=== PATIENT | female | born 1995 | race Asian ===

== ENCOUNTER 2018-05-12 03:33 | Emergency (ER) | payer OTHER ==
[~2018-05-12] VITALS: Ht 160 cm; Wt 123.4 kg
[2018-05-12 05:09] VITALS: BP 162/90; TEMP 98.4
== END 2018-05-12 05:14 | disposition home or self-care (01) ==
LOC: ED 03:33
PROC: 09C37ZZ Extirpation of Matter from Right External Auditory Canal, Via Natural or Artificial Opening (ICD-10-PCS; principal; 2018-05-12)
DX: T16.1XXA Foreign body in right ear, initial encounter (principal)
CPT/HCPCS: 99283; J7040

== ENCOUNTER 2018-05-19 22:13 | Emergency (ER) | payer OTHER ==
[~2018-05-19] VITALS: Ht 160 cm; Wt 122.5 kg
[2018-05-19 22:30] VITALS: BP 177/93; TEMP 98
== END 2018-05-20 01:07 | disposition home or self-care (01) ==
LOC: ED 22:13
PROC: 09C37ZZ Extirpation of Matter from Right External Auditory Canal, Via Natural or Artificial Opening (ICD-10-PCS; principal; 2018-05-19)
DX: T16.1XXA Foreign body in right ear, initial encounter (principal)
CPT/HCPCS: 99282

== ENCOUNTER 2018-09-19 22:01 | Emergency (ER) | payer OTHER ==
[~2018-09-19] VITALS: Ht 160 cm; Wt 121.6 kg
[2018-09-19 23:02] VITALS: BP 149/89; TEMP 98.2
== END 2018-09-19 23:02 | disposition home or self-care (01) ==
LOC: ED 22:01
DX: M79.661 Pain in right lower leg (principal)
CPT/HCPCS: 99282

== ENCOUNTER 2019-02-22 20:45 | Emergency (ER) | payer OTHER ==
[~2019-02-22] VITALS: Ht 160 cm; Wt 120.7 kg
[2019-02-22 22:10] VITALS: BP 163/91; TEMP 98.9
== END 2019-02-22 22:10 | disposition home or self-care (01) ==
LOC: ED 20:45
DX: L02.811 Cutaneous abscess of head [any part, except face] (principal)
CPT/HCPCS: 99282

== ENCOUNTER 2020-06-04 10:02 | Outpatient (CLI) | payer OTHER | END 2020-06-04 21:07 | disposition home or self-care (01) | LOC: INF 10:02 | PROVIDERS: ATTEND Internal Medicine | DX: Z23 Encounter for immunization (principal) | CPT/HCPCS: 96372 ==

== ENCOUNTER 2020-07-01 09:41 | Outpatient (CLI) | payer OTHER | END 2020-07-01 20:14 | disposition home or self-care (01) | LOC: INF 09:41 | PROVIDERS: ATTEND Internal Medicine | DX: Z23 Encounter for immunization (principal) | CPT/HCPCS: 96372 ==

== ENCOUNTER 2021-12-22 20:50 | Emergency (ER) | payer OTHER ==
[~2021-12-22] VITALS: Ht 160 cm; Wt 120.7 kg
[2021-12-22 21:58] LABS: PLATELET COUNT 227 K/uL (152-353)
[2021-12-22] MEDS ORDERED: METF500T PO (22:10)
[2021-12-22] MEDS ORDERED: LISI10TA11 PO (22:10)
[2021-12-22 22:15] LABS: POTASSIUM 3.6 mmol/L (3.6-5.2)
[2021-12-22 23:45] VITALS: BP 154/84; TEMP 99.5
== END 2021-12-22 23:50 | disposition home or self-care (01) ==
LOC: ED 20:50
PROVIDERS: Emergency Medicine
DX: B34.9 Viral infection, unspecified (principal); Z20.822 Contact with and (suspected) exposure to COVID-19; I10 Essential (primary) hypertension; E11.65 Type 2 diabetes mellitus with hyperglycemia; Z79.84 Long term (current) use of oral hypoglycemic drugs
CPT/HCPCS: 36415; 80048; 85027; 87635; 87651; 96372; 99283; J0696; J1100; U0003